=== PATIENT | female | born 1990 | race African-American/Black ===

== ENCOUNTER 2021-11-14 15:02 | Observation (INO) | payer MEDICAID, OTHER ==
[~2021-11-14] VITALS: Ht 177.8 cm; Wt 138.3 kg
== END 2021-11-14 17:30 | disposition home or self-care (01) ==
LOC: 8 EST LDRP 15:02
PROVIDERS: ADMIT Obstetrics & Gynecology; ATTEND Obstetrics & Gynecology
DX: O36.8130 Decreased fetal movements, third trimester, not applicable or unspecified (principal); Z3A.38 38 weeks gestation of pregnancy
CPT/HCPCS: 59025; 76805; 76818; G0378; 99281; G0379